=== PATIENT | female | born 1985 | race Hispanic/Latino ===

== ENCOUNTER 2020-09-12 17:50 | Emergency (ER) | payer BC ==
[~2020-09-12] VITALS: Ht 160 cm; Wt 72.6 kg
[2020-09-12] MEDS ORDERED: CEPH500B PO (19:06)
[2020-09-12 19:26] VITALS: BP 142/82
[2020-09-12] MEDS ORDERED: GENTAMICIN SULFATE 0.3% 5ML DROPS OS SCH (19:30)
[2020-09-12] MEDS ORDERED: CEPHALEXIN 500 MG CAPSULE PO ONE (19:30)
== END 2020-09-12 20:01 | disposition home or self-care (01) ==
LOC: EDH 18:14
DX: T78.3XXA Angioneurotic edema, initial encounter (principal); H10.9 Unspecified conjunctivitis

== ENCOUNTER 2023-09-23 15:04 | Inpatient (IN) | payer BC, OTHER ==
[~2023-09-23] VITALS: Ht 160 cm; Wt 83.5 kg
[~2023-09-23 15:04] MED LIST: CEPH500B PO
[2023-09-23 15:43] LABS: BASOPHILS # (AUTO) 0.04 K/uL (0.00-0.20); BASOPHILS % (AUTO) 0.6 % (0.0-5.0); EOSINOPHILS # (AUTO) 0.35 K/uL (0.00-0.70); EOSINOPHILS % (AUTO) 5.7 % (0.0-8.0); HEMATOCRIT 28.6 % (36-48); IMMATURE GRANULOCYTE ABSOLUTE 0.01 K/uL (0-1); LYMPHOCYTES # (AUTO) 2.1 K/uL (1.0-4.8); LYMPHOCYTES % (AUTO) 33.6 % (21.0-51.0); MEAN CORPUSCULAR HEMOGLOBIN 17.2 pg (27.0-33.0); MEAN CORPUSCULAR HGB CONC 27.6 g/dL (32.0-36.0); MEAN CORPUSCULAR VOLUME 62.3 fL (79-99); MONOCYTES # (AUTO) 0.4 K/uL (0.1-1.0); NEUTROPHILS # (AUTO) 3.3 K/uL (1.8-7.7); NEUTROPHILS % (AUTO) 53.9 % (40.0-77.0); PLATELET COUNT (AUTO) 328 K/uL (130-400); RED BLOOD CELL COUNT(AUTO) 4.59 MIL/uL (4.00-5.50); RED CELL DISTRIBUTION WIDTH 19.1 % (11.0-15.5); WHITE BLOOD COUNT (AUTO) 6.2 K/uL (4.8-10.8)
[2023-09-23 15:54] LABS: CREATININE 0.6 mg/dL (0.5-1.0); POTASSIUM 4.4 mmol/L (3.5-5.1)
[2023-09-23 16:03] LABS: ALBUMIN 3.7 g/dL (3.5-5.0); BILIRUBIN,TOTAL 0.2 mg/dL (0.2-1.0); TOTAL PROTEIN, SERUM 7.7 g/dL (6.0-8.3)
[2023-09-23 16:24] LABS: ADD UA MICROSCOPIC YES; APPEARANCE,URINE CLEAR (CLEAR); BILIRUBIN,URINE NEGATIVE (NEGATIVE); COLOR,URINE LIGHT-YELLOW (YELLOW); GLUCOSE, URINE (UA) NEGATIVE (NEGATIVE); KETONES,URINE NEGATIVE (NEGATIVE); LEUKOCYTE ESTERASE ,URINE 75 Leu/uL (NEGATIVE); NITRATE,URINE NEGATIVE (NEGATIVE); OCCULT BLOOD,URINE LARGE (NEGATIVE); PH,URINE 5.5 (5.0-8.0); PROTEIN,URINE NEGATIVE (NEGATIVE); UROBILINOGEN,URINE 0.2 mg/dL (0.2-1.0)
[2023-09-23 16:26] LABS: HCG,QUALITATIVE URINE NEGATIVE (NEGATIVE)
[2023-09-23 16:27] LABS: BACTERIA,URINE FEW /HPF (None Seen); MUCUS,URINE RARE LPF (None Seen); SQUAMOUS EPITHELIAL CELL,UR FEW /HPF (0-2)
[2023-09-23] MEDS: ONDANSETRON 4MG INJ IVP ONE (16:58)
[2023-09-23] MEDS: LACTATED RINGERS 1000ML 1,000 ML IV ONE (16:58)
[2023-09-23] MEDS: PANTOPRAZOLE 40 MG/VIAL IVP ONE (16:58)
[2023-09-23] MEDS ORDERED: MAG/ALUM/SIMETH 30 ML UDCUP PO PRN (19:00)
[2023-09-23] MEDS ORDERED: MAGNESIUM 2GM PREMIX 50ML 50 ML IV PRN (19:00)
[2023-09-23] MEDS ORDERED: ACETAMINOPHEN 325 MG TAB PO PRN ×2 (19:00)
[2023-09-23] MEDS ORDERED: KCL 20 MEQ ERTAB PO PRN (19:00)
[2023-09-23] MEDS ORDERED: FAMOTIDINE 20MG VIAL IV PRN (19:00)
[2023-09-23] MEDS ORDERED: LACTULOSE 20 GM/30 ML UDCUP PO PRN (19:00)
[2023-09-23] MEDS ORDERED: DEXTROSE 50%-WATER 50 ML DISP.SYRIN IV PRN (19:00)
[2023-09-23] MEDS ORDERED: ONDANSETRON 4MG INJ IV PRN (19:00)
[2023-09-23] MEDS ORDERED: ZOLPIDEM TARTRATE 5 MG TAB PO PRN (19:00)
[2023-09-23] MEDS ORDERED: GUAIFENESIN-DM 200/20 MG 10 ML PO PRN (19:00)
[2023-09-23] MEDS ORDERED: POTASSIUM CHLORIDE 10MEQ/100ML 100 ML IV PRN (19:00)
[2023-09-23] MEDS ORDERED: GLUCAGON 1MG KIT 1 MG ML IM PRN (19:00)
[2023-09-23] MEDS ORDERED: KETOROLAC 15MG/ML VIAL (15MG/ML) IV PRN (19:00)
[2023-09-23] MEDS ORDERED: NITROGLYCERIN 0.4 MG SL TAB SL PRN (19:00)
[2023-09-23] MEDS ORDERED: DiphenhydrAMINE HCL 50 MG/ML VIAL IV PRN (19:00)
[2023-09-23] MEDS ORDERED: HYDRALAZINE 20MG/ML VIAL IV PRN (19:00)
[2023-09-23] MEDS ORDERED: POTASSIUM CHLORIDE 10% ELIXIR 20 MEQ/15 ML UDCUP PO PRN (19:00)
[2023-09-23] MEDS: 0.9%NACL 1000ML 1,000 ML IV SCH (19:38)
[2023-09-23] MEDS: FAMOTIDINE 20MG VIAL IV SCH (20:02)
[2023-09-23] MEDS: INSULIN HUMULIN R 100 UNIT/ML 3ML SQ SCH (21:00)
[2023-09-23] MEDS: CEFTRIAXONE 2GM VIAL IVPB SCH (23:19)
[2023-09-24] VITALS (8 sets, daily range): BP systolic 128–146; BP diastolic 65–95; PULSE 72–97; RESP 17–20; O2SAT 99–100
[2023-09-24] MEDS ORDERED: CEFTRIAXONE 2GM VIAL IVPB SCH (03:00)
[2023-09-24 06:43] LABS: BASOPHILS # (AUTO) 0.03 K/uL (0.00-0.20); BASOPHILS % (AUTO) 0.6 % (0.0-5.0); EOSINOPHILS # (AUTO) 0.33 K/uL (0.00-0.70); EOSINOPHILS % (AUTO) 6.1 % (0.0-8.0); HEMATOCRIT 26.1 % (36-48); IMMATURE GRANULOCYTE ABSOLUTE 0.01 K/uL (0-1); LYMPHOCYTES # (AUTO) 2.1 K/uL (1.0-4.8); MEAN CORPUSCULAR HEMOGLOBIN 17.1 pg (27.0-33.0); MEAN CORPUSCULAR HGB CONC 27.2 g/dL (32.0-36.0); MONOCYTES # (AUTO) 0.4 K/uL (0.1-1.0); MONOCYTES % (AUTO) 8.1 % (3.0-13.0); NEUTROPHILS # (AUTO) 2.6 K/uL (1.8-7.7); PLATELET COUNT (AUTO) 293 K/uL (130-400); RED BLOOD CELL COUNT(AUTO) 4.14 MIL/uL (4.00-5.50); WHITE BLOOD COUNT (AUTO) 5.4 K/uL (4.8-10.8)
[2023-09-24 06:54] LABS: INR 0.95 (0.85-1.15); PROTHROMBIN TIME 10.3 SEC (9.6-11.6)
[2023-09-24 06:55] LABS: PARTIAL THROMBOPLASTIN TIME 23.4 SEC (26.3-35.5)
[2023-09-24 07:01] LABS: ALANINE AMINOTRANSFERASE 20 U/L (12-78); ALBUMIN 3.2 g/dL (3.5-5.0); AMMONIA < 10 umol/L (11-32); ASPARTATE AMINOTRANSFERASE 20 U/L (10-37); BILIRUBIN,DIRECT < 0.1 mg/dL (0.0-0.3); BILIRUBIN,TOTAL 0.2 mg/dL (0.2-1.0); CARBON DIOXIDE 25 mmol/L (21-32); CHLORIDE 109 mmol/L (101-111); CREATINE KINASE, TOTAL 64 U/L (21-232); CREATININE 0.7 mg/dL (0.5-1.0); GLOMERULAR FILTR. RATE CALC 113 mL/min (>90); GLUCOSE,RANDOM 86 mg/dL (70-105); POTASSIUM 3.7 mmol/L (3.5-5.1); SODIUM SERUM 143 mmol/L (136-145); TOTAL PROTEIN, SERUM 6.5 g/dL (6.0-8.3); UREA NITROGEN, BLOOD 4 mg/dL (7-18)
[2023-09-24 07:04] LABS: HEMOGLOBIN A1C 5.4 % (4.0-6.0)
[2023-09-24] MEDS: CEFTRIAXONE 2GM VIAL IVPB SCH (08:22)
[2023-09-24] MEDS: PANTOPRAZOLE 40MG INJ 80 MG in 0.9%NACL 100ML 100 ML IV SCH (08:23)
[2023-09-24 09:50] LABS: RETICULOCYTE % (AUTO) 1.27 % (0.42-2.23)
[2023-09-24 11:31] LABS: % IRON SATURATION 2.3 % (22-44)
[2023-09-24] MEDS ORDERED: COMPOUND IV REFRIGERATED 1 EACH IVSOLN MISC PRN (12:00)
[2023-09-24] MEDS: PEG 3350/NA SULF,BICARB,CL/KCL 4000 ML SOLN PO SCH (17:00)
[2023-09-24 18:18] LABS: HEMATOCRIT 28.5 % (36-48)
[2023-09-25] VITALS (28 sets, daily range): BP systolic 113–160; BP diastolic 72–104; PULSE 61–93; RESP 16–20; TEMP 98.2; O2SAT 99–100
[2023-09-25 05:31] LABS: HEMATOCRIT 24.9 % (36-48); MEAN CORPUSCULAR HEMOGLOBIN 17.2 pg (27.0-33.0); MEAN CORPUSCULAR HGB CONC 27.7 g/dL (32.0-36.0); MEAN CORPUSCULAR VOLUME 62.1 fL (79-99); RED BLOOD CELL COUNT(AUTO) 4.01 MIL/uL (4.00-5.50); RED CELL DISTRIBUTION WIDTH 18.7 % (11.0-15.5); WHITE BLOOD COUNT (AUTO) 4.7 K/uL (4.8-10.8)
[2023-09-25 05:52] LABS: CREATININE 0.7 mg/dL (0.5-1.0); POTASSIUM 3.6 mmol/L (3.5-5.1)
[2023-09-25] MEDS ORDERED: PROPOFOL 10 MG/ML 20ML VIAL IV ONE ×3 (08:14→08:35)
[2023-09-25] MEDS ORDERED: LIDOCAINE PF 100MG/5ML (2%) SYRINGE 5ML ONE (08:14)
[2023-09-25 12:05] LABS: HEMATOCRIT 31.7 % (36-48)
[2023-09-25] MEDS: ACETAMINOPHEN 325 MG TAB PO PRN (17:40)
[2023-09-26] VITALS: BP 151/78; PULSE 80; RESP 20
[2023-09-26 04:00] VITALS: BP 108/89; PULSE 68; RESP 20
[2023-09-26 05:54] LABS: HEMATOCRIT 29.5 % (36-48); MEAN CORPUSCULAR HEMOGLOBIN 18.3 pg (27.0-33.0); MEAN CORPUSCULAR HGB CONC 28.8 g/dL (32.0-36.0); MEAN CORPUSCULAR VOLUME 63.6 fL (79-99); RED BLOOD CELL COUNT(AUTO) 4.64 MIL/uL (4.00-5.50); RED CELL DISTRIBUTION WIDTH 20.9 % (11.0-15.5); WHITE BLOOD COUNT (AUTO) 5.6 K/uL (4.8-10.8)
[2023-09-26 06:16] LABS: CREATININE 0.8 mg/dL (0.5-1.0); POTASSIUM 3.6 mmol/L (3.5-5.1)
[2023-09-26 08:00] VITALS: BP 116/66; PULSE 68; RESP 18; O2SAT 98
[2023-09-26] MEDS ORDERED: FERR-63 PO (10:14)
[2023-09-26] MEDS ORDERED: CEPH500B PO (10:14)
[2023-09-26 11:24] VITALS: BP 138/83; PULSE 80; RESP 18
== END 2023-09-26 12:00 | disposition home or self-care (01) | DRG 378 ==
LOC: EDH 15:04 → EDHIP 15:05 → 4BH 09-24 02:57
PROVIDERS: ADMIT Hospitalist; ATTEND Hospitalist
PROC: 30233N1 Transfusion of Nonautologous Red Blood Cells into Peripheral Vein, Percutaneous Approach (ICD-10-PCS; principal; 2023-09-25)
PROC: 0DB98ZX Excision of Duodenum, Via Natural or Artificial Opening Endoscopic, Diagnostic (ICD-10-PCS; 2023-09-25)
PROC: 0DB78ZX Excision of Stomach, Pylorus, Via Natural or Artificial Opening Endoscopic, Diagnostic (ICD-10-PCS; 2023-09-25)
PROC: 0DJD8ZZ Inspection of Lower Intestinal Tract, Via Natural or Artificial Opening Endoscopic (ICD-10-PCS; 2023-09-25)
DX: K57.31 Diverticulosis of large intestine without perforation or abscess with bleeding (principal); N30.00 Acute cystitis without hematuria; I95.9 Hypotension, unspecified; N94.89 Other specified conditions associated with female genital organs and menstrual cycle; N92.0 Excessive and frequent menstruation with regular cycle; D50.9 Iron deficiency anemia, unspecified; K22.89 Other specified disease of esophagus; K31.89 Other diseases of stomach and duodenum; Z82.49 Family history of ischemic heart disease and other diseases of the circulatory system; Z98.51 Tubal ligation status
CPT/HCPCS: 36415; 36430; 43239; 45378; 71045; 74176; 80048; 80053; 80076; 81001; 81025; 82140; 82270; 82550; 82607; 82728; 82948; 83036; 83605; 83690; 83880; 84145; 84484; 84702; 85014; 85018; 85025; 85027; 85610; 85730; 86850; 86900; 86901; 86923; 87086; 88305; 88312; 93005; G0378; J0696; J2001; J2405; J2470; J2704; J3490; J7030; J7120; P9016; A4215; A4222; A4223; A4620

== ENCOUNTER 2024-03-25 09:13 | Emergency (ER) | payer BC ==
[~2024-03-25] VITALS: Ht 157.5 cm; Wt 81.6 kg
[~2024-03-25 09:13] MED LIST changes: +FERR-63 PO
[2024-03-25] MEDS: LACTATED RINGERS 1000ML 1,000 ML IV ONE (09:32)
[2024-03-25] MEDS: ketOROlac 15MG/ML VIAL (15MG/ML) IV ONE (09:32)
--- NOTE | 2024-03-25 09:38 | ERN ---
General Chief Complaint: Flu Symptoms Stated Complaint: FLULIKE SYMTOMS Time Seen by MD: 09:17 History of Present Illness Initial Comments Otherwise healthy 38-year-old female who presents for body aches, fever, sore throat, no vomiting, abdominal discomfort, and cough for the last 48 hours. No sputum production. No diarrhea. P.o. tolerant with decreased p.o. intake. She has been taking [id number] Tylenol. Allergies: Coded Allergies: No Known Allergies (Unverified Allergy, Unknown, 09/12/20) Home Meds Active Scripts Ferrous Sulfate (Feosol) 325 Mg (65 Mg Iron) Tablet, 325 MG PO DAILY, #30 TAB 0 Refills Prov:LEWIS TERRELL AGPCNP 09/26/23 Cephalexin Monohydrate (Keflex) 500 Mg Cap, 500 MG PO TID, #12 CAP 0 Refills Prov:LEWIS TERRELL AGPCNP 09/26/23 Past Medical History Past Medical History: No Pertinent History Past Surgical History: Other, BTL Surgical History Other: LITHOTRIPSY Family History Family History: Negative Social History Social History: Negative Female( History) LMP: Feb 14, 2024 ROS Dictation CONSTITUTIONAL: Fever body aches HEAD/FACE: No signs of trauma. EENT: Sore throat RESPIRATORY: Cough GASTROINTESTINAL/ABDOMINAL: No abdominal pain, no constipation, no diarrhea, no nausea, no vomiting. GENITOURINARY: No abnormal discharge, no dysuria, no frequent urination, no hematuria. No complaints of pain in the genitals. MUSCULOSKELETAL: No back pain, no gout, no joint pain, no joint swelling, no muscle pain, no muscle stiffness, no neck pain. INTEGUMENTARY: No change in color, no change in hair/nails, no dryness, no lesion, no lumps, no rash. NEUROLOGICAL/PSYCH: No anxiety, not depressed, no emotional problem, no headache, no numbness, no pre-existing deficit, no history of seizures, no tremors, no weakness. HEMATOLOGIC/LYMPHATIC: Not anemic, no history of blood clots, no apparent bleeding, no bruising, glands not swollen. All Systems Negative, Except as Noted. Physical Exam Physical Exam Dictation VITAL SIGNS: Reviewed. GENERAL APPEARANCE: Alert, oriented x3, no acute distress HEAD AND FACE: Non-traumatic. EYES: PERRL, pink conjunctivas, eyelid no trauma, anterior chamber clear. EARS: Pinnas intact and no signs of trauma or erythema. Ear canals clear and no discharge. TMs no erythema. NOSE: No discharge, no bleeding. OROPHARYNX: Mouth normal, teeth no caries, tongue pink. Pharynx clear, no erythema. Tonsils no exudates, no abscesses noted. Mucous membrane moist. NECK: Supple, non-tender, no thyromegaly, no masses, no JVD, no bruits. BREAST: Deferred. CHEST: No tenderness, no crepitus, no paradoxical movement, no retractions. LUNGS: Clear, well-ventilated, symmetric, no rales, no wheezing, no rhonchi, no stridor, good breath sounds bilaterally. HEART: Regular rate, regular rhythm, no murmur, no gallops. VASCULAR: No peripheral edema. ABDOMEN: Soft, positive bowel sounds, nondistended, no guarding, nontender, no rebound, no masses no hepatomegaly, no splenomegaly, no Hernandez's sign, no hernias. RECTAL: Deferred. GENITAL: Deferred. NEUROLOGICAL: Normal speech, gross motor function intact, gross sensory function intact. MUSCULOSKELETAL: Neck nontender, full range of motion, back nontender, full range of motion. EXTREMITIES: Nontender, full range of motion. SKIN: Color pink, dry, no turgor, no rash, no lacerations, no abrasions, no contusions. LYMPHATICS: Deferred. Results Laboratory and Microbiology Lab and Micro Result Laboratory Tests Test 03/25/24 09:17 03/25/24 09:43 Influenza Type A Antigen Positive For Type A Influenza Type B Antigen Negative For Type B SARS-CoV-2, RNA, NAAT NEGATIVE SARS CoV-2 Group A Streptococcus Rapid negative (NEGATIVE) White Blood Count 2.6 K/uL (4.8-10.8) L Red Blood Count 4.78 MIL/uL (4.00-5.50) Hemoglobin 11.3 g/dL (12.0-16.0) L Hematocrit 36.2 % (36-48) Mean Corpuscular Volume 75.7 fL (79-99) L Mean Corpuscular Hemoglobin 23.6 pg (27.0-33.0) L Mean Corpuscular Hemoglobin Concent 31.2 g/dL (32.0-36.0) L Red Cell Distribution Width 17.2 % (11.0-15.5) H Platelet Count 171 K/uL (130-400) Mean Platelet Volume 10.8 fL (7.5-10.5) H Immature Granulocyte % (Auto) 0.4 % (0-1) Neutrophils (%) (Auto) 63.2 % (40.0-77.0) Lymphocytes (%) (Auto) 21.1 % (21.0-51.0) Monocytes (%) (Auto) 14.5 % (3.0-13.0) H Eosinophils (%) (Auto) 0.8 % (0.0-8.0) Basophils (%) (Auto) 0.0 % (0.0-5.0) Neutrophils # (Auto) 1.6 K/uL (1.8-7.7) L Lymphocytes # (Auto) 0.5 K/uL (1.0-4.8) L Monocytes # (Auto) 0.4 K/uL (0.1-1.0) Eosinophils # (Auto) 0.02 K/uL (0.00-0.70) Basophils # (Auto) 0.00 K/uL (0.00-0.20) Absolute Immature Granulocyte (auto 0.01 K/uL (0-1) Nucleated Red Blood Cells 0.0 % (0.0-0.19) Sodium Level 135 mmol/L (136-145) L Potassium Level 4.1 mmol/L (3.5-5.1) Chloride Level 103 mmol/L (101-111) Carbon Dioxide Level 22 mmol/L (21-32) Blood Urea Nitrogen 9 mg/dL (7-18) Creatinine 0.5 mg/dL (0.5-1.0) Glomerular Filtration Rate Calc 123 mL/min (>90) Random Glucose 102 mg/dL (70-105) Total Calcium 9.0 mg/dL (8.5-10.1) MDM CC: Flu-like illness Historian: Patient Comorbidities: None Limitations by social determinants of health: Uninsured Differential diagnosis: Flu, dehydration, electrolyte abnormality,. Vital signs: Initially temp 101.2 otherwise vital signs stable. Improved in the ER. Labs ( independently ordered and interpreted by me ): Leukopenia 2.6 K, right shift no bands. Normocytic anemia hemoglobin 11.3 unlikely related to the symptoms. Metabolic panel is unremarkable. Flu positive consistent with symptoms. Patient received IV fluids, IV Toradol here in the ER. We will DC with Tamiflu recommend PCP follow up. No life threats, no clinical signs of dehydration , respiratory distress, or other. ED Course Orders Procedure Category Date Status Time Influenza Type A & B, LAB 03/25/24 Complete Rapid 09:14 Covid Rna Naat LAB 03/25/24 Complete 09:14 Rapid (Group A Strep) LAB 03/25/24 Complete 09:14 Lactated Ringers PHA 03/25/24 Complete 1000ml (Lactated 09:30 Ketorolac PHA 03/25/24 Complete Tromethamine 15mg/Ml 09:30 Cbc With Differential LAB 03/25/24 In Process 09:24 Basic Metabolic Panel LAB 03/25/24 Complete 09:24 ,Urine Test LAB 03/25/24 Logged 09:24 Chest 1vw RAD 03/25/24 Resulted 09:38 Manual Differential LAB 03/25/24 In Process 09:43 Current Medications Medications (Trade) Dose Ordered Sig/Omar Route PRN Reason Start Time Stop Time Status Last Admin Dose Admin Ketorolac Tromethamine (toRADol) 15 mg ONCE ONCE IV 03/25/24 09:30 03/25/24 09:31 DC 03/25/24 09:32 Lactated Ringer's 1,000 ml @ 0 mls/hr ONCE ONCE IV 03/25/24 09:30 03/25/24 09:31 DC 03/25/24 09:32 Vital Signs Date Time Temp Pulse Resp B/P (MAP) Pulse Ox O2 Delivery O2 Flow Rate FiO2 03/25/24 09:15 101.1 98 20 161/111 99 Room Air DX & DISP Disposition: Discharge Departure Impression: Primary Impression: Influenza A Condition: Stable Scripts Ondansetron (Ondansetron Odt) 4 Mg Tab.rapdis 1 TAB PO Q6HPRN PRN for nausea/vomiting for 3 Days, #9 TAB 0 Refills Prov: DULCE LE DO 03/25/24 Oseltamivir Phosphate (Tamiflu) 75 Mg Cap 1 CAP PO BID for 5 Days, #10 CAP 0 Refills Prov: DULCE LE DO 03/25/24 Additional Instructions: You tested positive for influenza a, or the flu. I have prescribed Tamiflu, which is an antiviral medication that works against the flu. Take as prescribed. I have also prescribed ondansetron dissolvable tabs to prevent vomiting. Use as needed. You can take [id number] cold and flu medications for your symptoms. Be sure to drink plenty of liquids. If you do not want to eat whole foods, that is okay. Your lab work (CBC, BMP) is stable. Please return to the emergency department if you have any concerning symptoms. Referrals: SELF,REFERRAL (PCP) DULCE LE DO Mar 25, 2024 09:38
[2024-03-25 09:42] LABS: RAPID GROUP A STREP negative (NEGATIVE)
[2024-03-25 09:52] LABS: INFLUENZA TYPE B Negative For Type B (NEGATIVE)
[2024-03-25 10:01] LABS: EOSINOPHILS # (AUTO) 0.02 K/uL (0.00-0.70); EOSINOPHILS % (AUTO) 0.8 % (0.0-8.0); HEMATOCRIT 36.2 % (36-48); IMMATURE GRANULOCYTE ABSOLUTE 0.01 K/uL (0-1); LYMPHOCYTES # (AUTO) 0.5 K/uL (1.0-4.8); LYMPHOCYTES % (AUTO) 21.1 % (21.0-51.0); MEAN CORPUSCULAR HEMOGLOBIN 23.6 pg (27.0-33.0); MEAN CORPUSCULAR HGB CONC 31.2 g/dL (32.0-36.0); MEAN CORPUSCULAR VOLUME 75.7 fL (79-99); MONOCYTES # (AUTO) 0.4 K/uL (0.1-1.0); MONOCYTES % (AUTO) 14.5 % (3.0-13.0); NEUTROPHILS # (AUTO) 1.6 K/uL (1.8-7.7); NEUTROPHILS % (AUTO) 63.2 % (40.0-77.0); PLATELET COUNT (AUTO) 171 K/uL (130-400); RED BLOOD CELL COUNT(AUTO) 4.78 MIL/uL (4.00-5.50); RED CELL DISTRIBUTION WIDTH 17.2 % (11.0-15.5); WHITE BLOOD COUNT (AUTO) 2.6 K/uL (4.8-10.8)
--- NOTE | 2024-03-25 10:05 | HMCIMG ---
CHEST 1VW REASON: cough, fever COMPARISON: 09/23/2023 FINDINGS: Single view of the chest was obtained. Lungs are clear. Heart size is normal. There is no pulmonary vascular congestion. Mediastinum and bony thorax appear unremarkable. IMPRESSION: 1. Normal single view chest x-ray.
--- NOTE | 2024-03-25 10:05 | NUR ---
FLU A +, ERMD MADE AWARE
[2024-03-25 10:06] LABS: INFLUENZA TYPE A Positive For Type A (NEGATIVE)
[2024-03-25 10:08] LABS: CREATININE 0.5 mg/dL (0.5-1.0); POTASSIUM 4.1 mmol/L (3.5-5.1)
[2024-03-25 10:08] LABS: SARS-CoV-2, RNA, NAAT NEGATIVE SARS CoV-2 (NEGATIVE)
[2024-03-25] MEDS ORDERED: OSEL75 PO (10:19)
[2024-03-25] MEDS ORDERED: ONDA-243 PO (10:21)
[2024-03-25 10:37] VITALS: BP 149/95; PULSE 90; RESP 20; TEMP 99; O2SAT 99
[2024-03-25 12:39] LABS: BAND NEUTROPHILS % (MANUAL) 6 % (0-2); LYMPHOCYTES % (MANUAL) 30 % (22-44); MAN.DIFF COMMENT-IMPRESSION MANUAL DIFFERENTIAL; MONOCYTES % (MANUAL) 6 % (2-9); SEGMENTED NEUTROPHILS % 58 % (40-70); TOTAL CELLS COUNTED 50
[2024-03-25 12:40] LABS: PLATELET MORPHOLOGY COMMENT ADEQUATE
== END 2024-03-25 10:44 | disposition home or self-care (01) ==
LOC: EDH 09:13
DX: J10.1 Influenza due to other identified influenza virus with other respiratory manifestations (principal); Z20.822 Contact with and (suspected) exposure to COVID-19; Z79.899 Other long term (current) drug therapy; Z98.51 Tubal ligation status
CPT/HCPCS: 99284; 96374; 71045; 87635; 96361; 80048; 85025; 87880; 87804 ×2; 36415; J1885; J7120